=== PATIENT | female | born 1985 | race Caucasian/White ===

== ENCOUNTER 2017-12-03 09:51 | Emergency (ER) | payer BC, MEDICAID, OTHER ==
[2017-12-03 09:59] VITALS: BP 109/53
[2017-12-03] MEDS ORDERED: BACLOFEN 20 MG TABLET PO ONE (10:13)
[2017-12-03] MEDS ORDERED: KETOROLAC TROMETHAMINE 60 MG/2 ML SDV IM ONE (10:13)
--- NOTE | 2017-12-03 10:18 | ER Document Report ---
ED General - General Chief Complaint: Numbness of Arm Stated Complaint: ARM/HAND NUMBNESS Time Seen by Provider: 12/03/17 10:13 Mode of Arrival: Ambulatory Information source: Patient Notes: Chief complaint: Left shoulder pain/left arm numbness History of complain:( obtained from----patient) 32 years old female was having left shoulder pain for about 3 days with left neck pain and today while she was driving felt numbness in the left arm therefore concerned and came to the ED. Denies any chest pain palpitation or diaphoresis. Denies any fever chills cough other constitutional symptoms Onset: Gradual Duration: 3 days Severity: Mild to moderate Quality: Sharp Context: Sprain Exacerbating factor and relieving factors: Abduction of the left arm causes increase in pain REVIEW OF SYSTEMS: CONSTITUTIONAL : Denies fever, chills, or sweats. Denies recent illness. EENT: Denies eye, ear, throat, or mouth pain or symptoms. Denies nasal or sinus congestion or discharge. Denies throat, tongue, or mouth swelling or difficulty swallowing. CARDIOVASCULAR: Denies chest pain. Denies palpitations or racing or irregular heart beat. Denies ankle edema. RESPIRATORY: Denies cough, cold, or chest congestion. Denies shortness of breath, difficulty breathing, or wheezing. GASTROINTESTINAL: Denies distention. Denies nausea, vomiting, or diarrhea. Denies blood in vomitus, stools, or per rectum. Denies black, tarry stools. Denies constipation. GENITOURINARY: Denies difficulty urinating, painful urination, burning, frequency, blood in urine, or discharge. FEMALE GENITOURINARY: Denies vaginal bleeding, heavy or abnormal periods, irregular periods. Denies vaginal discharge or odor. MUSCULOSKELETAL: Denies back or neck pain or stiffness. Denies joint pain or swelling. SKIN: Denies rash, lesions or sores. HEMATOLOGIC : Denies easy bruising or bleeding. LYMPHATIC: Denies swollen, enlarged glands. NEUROLOGICAL: Denies confusion or altered mental status. Denies passing out or loss of consciousness. Denies dizziness or lightheadedness. Denies headache. Denies weakness or paralysis or loss of use of either side. Denies problems with gait or speech. Denies sensory loss, numbness, or tingling. Denies seizures. PSYCHIATRIC: Denies anxiety or stress. Denies depression, suicidal ideation, or homicidal ideation. ALL OTHER SYSTEMS REVIEWED AND NEGATIVE. PHYSICAL EXAMINATION: GENERAL: Well-appearing, well-nourished and in no acute distress. HEAD: Atraumatic, normocephalic. EYES: Pupils equal round and reactive to light, extraocular movements intact, conjunctiva are normal. ENT: Nares patent, oropharynx clear without exudates. Moist mucous membranes. NECK: Normal range of motion, supple without lymphadenopathy But on deep palpation over the left scalene muscles there was sharp tenderness were noted. During this time her left arm became more numb and tingly. Once his release it improved. LUNGS: Breath sounds clear to auscultation bilaterally and equal. No wheezes rales or rhonchi. HEART: Regular rate and rhythm without murmurs ABDOMEN: Soft, nontender, nondistended abdomen. No guarding, no rebound. No masses appreciated. Examination of genitals-deferred Musculoskeletal: Normal range of motion, no pitting or edema. No cyanosis. Range of motion for the left shoulder limited for abduction beyond 100. NEUROLOGICAL: Cranial nerves grossly intact. Normal speech, normal gait. Normal sensory, motor exams PSYCH: Normal mood, normal affect. SKIN: Warm, Dry, normal turgor, no rashes or lesions noted. Dictation was performed using [employer] voice recognition software TRAVEL OUTSIDE OF THE [place] IN LAST 30 DAYS: No - HPI Notes: Dictated - Related Data Allergies/Adverse Reactions: Penicillins Adverse Reaction (Mild, Verified 09/25/13 08:54) Unknown reaction Past Medical History - General Information source: Patient - Social History Smoking Status: Current Every Day Smoker Chew tobacco use (# tins/day): No Frequency of alcohol use: Occasional Drug Abuse: None Lives with: Family Family History: Reviewed & Not Pertinent Patient has suicidal ideation: No Patient has homicidal ideation: No - Past Medical History Cardiac Medical History: Denies: Hx Coronary Artery Disease, Hx Heart Attack, Hx Hypertension Pulmonary Medical History: Denies: Hx Asthma, Hx Bronchitis, Hx COPD, Hx Pneumonia Neurological Medical History: Denies: Hx Cerebrovascular Accident, Hx Seizures Renal/ Medical History: Denies: Hx Peritoneal Dialysis Musculoskeletal Medical History: Denies Hx Arthritis Psychiatric Medical History: Reports: Hx Depression Past Surgical History: Reports: Hx Orthopedic Surgery - Left knee surgery - Immunizations Hx Diphtheria, Pertussis, Tetanus Vaccination: Yes Review of Systems - Review of Systems Notes: Dictated Physical Exam - Vital signs Vitals: Temp Pulse Resp BP Pulse Ox 98.4 F 88 16 109/53 L 100 12/03/17 09:57 12/03/17 09:57 12/03/17 09:57 12/03/17 09:57 12/03/17 09:57 - Notes Notes: Dictated Course - Re-evaluation Re-evalutation: 12/03/17 10:16 Given anti-inflammatory and muscle relaxers - Vital Signs Vital signs: Temp Pulse Resp BP Pulse Ox 98.4 F 88 16 109/53 L 100 12/03/17 09:57 12/03/17 09:57 12/03/17 09:57 12/03/17 09:57 12/03/17 09:57 Discharge - Discharge Clinical Impression: Cervical strain, acute Qualifiers: Encounter type: initial encounter Qualified Code(s): S16.1XXA - Strain of muscle, fascia and tendon at neck level, initial encounter Condition: Fair Disposition: HOME, SELF-CARE Instructions: Sprain ([facility]) Prescriptions: Baclofen [Baclofen 10 mg Tablet] 10 mg PO TID #30 tab Naproxen [Naprosyn] 500 mg PO BID #30 tablet Referrals: HEALTH,EMPLOYEE [Primary Care Provider] - Follow up as needed
== END 2017-12-03 11:35 | disposition home or self-care (01) ==
LOC: ER 09:51
DX: S16.1XXA Strain of muscle, fascia and tendon at neck level, initial encounter (principal); R20.0 Anesthesia of skin; M25.512 Pain in left shoulder; M54.2 Cervicalgia; X58.XXXA Exposure to other specified factors, initial encounter; F17.200 Nicotine dependence, unspecified, uncomplicated
CPT/HCPCS: 99284; 96372; J1885; J3490

== ENCOUNTER 2018-09-03 22:38 | Emergency (ER) | payer OTHER ==
--- NOTE | 2018-09-03 23:42 | EKG REPORT ---
SEVERITY:- NORMAL ECG - SINUS RHYTHM : Confirmed by: Cristina Simon MD 03-Sep-2018 23:41:37
[2018-09-04] MEDS ORDERED: ASPIRIN 81 MG TABLET, CHEWABLE PO ONE (01:53)
[2018-09-04 02:26] LABS: ABSOLUTE EOSINOPHILS # (AUTO) 0.3 10^3/uL (0.0-0.6); ABSOLUTE MONOCYTES (AUTO) 0.7 10^3/uL (0.1-1.4); BASOPHILS % (AUTO) 0.5 % (0-2); EOSINOPHILS % (AUTO) 3.3 % (0-6); HEMATOCRIT 41.9 % (36.0-47.0); HEMOGLOBIN 14.2 g/dL (12.0-15.5); MEAN CORPUSCULAR VOLUME 94 fl (80-97); MONOCYTES % (AUTO) 7.3 % (3-13); PLATELET COUNT 165 10^3/uL (150-450); RED BLOOD COUNT 4.45 10^6/uL (3.72-5.28); RED CELL DISTRIBUTION WIDTH 12.9 % (11.5-14.0); SEGMENTED NEUTROPHILS % (AUTO) 66.9 % (42-78); TOTAL CELLS COUNTED % (AUTO) 100 %; WHITE BLOOD COUNT 8.9 10^3/uL (4.0-10.5)
--- NOTE | 2018-09-04 02:40 | RADIOLOGY REPORT (SQ) ---
EXAM DESCRIPTION: XR CHEST 1 VIEW COMPLETED DATE/TME: 09/04/2018 01:53 CLINICAL HISTORY: 33 years, Female, chest pain COMPARISON: None. NUMBER OF VIEWS: 1 TECHNIQUE: Portable chest LIMITATIONS: None. FINDINGS: Heart size is normal. Lungs clear. No pneumothorax IMPRESSION: Negative chest copyright 2010 [employer]- All Rights Reserved
[2018-09-04 02:48] LABS: ALANINE AMINOTRANSFERASE 18 U/L (9-52); ALBUMIN 4.7 g/dL (3.5-5.0); ALKALINE PHOSPHATASE 44 U/L (38-126); ANION GAP 12 (5-19); ASPARTATE AMINO TRANSFERASE 17 U/L (14-36); BILIRUBIN,DIRECT 0.3 mg/dL (0.0-0.4); BILIRUBIN,TOTAL 0.7 mg/dL (0.2-1.3); BLOOD UREA NITROGEN 13 mg/dL (7-20); CALCIUM 9.5 mg/dL (8.4-10.2); CARBON DIOXIDE 26 mmol/L (22-30); CHLORIDE 104 mmol/L (98-107); CREATINE KINASE 27 U/L (30-135); GLUCOSE 103 mg/dL (75-110); POTASSIUM 3.9 mmol/L (3.6-5.0); SODIUM 142.3 mmol/L (137-145); TOTAL PROTEIN 7.7 g/dL (6.3-8.2)
[2018-09-04 02:59] LABS: CREATINE KINASE MB 0.25 ng/mL (<4.55); TROPONIN I < 0.012 ng/mL
[2018-09-04 05:36] VITALS: BP 101/66
--- NOTE | 2018-09-04 07:30 | ER Document Report ---
Entered by VINAY VASQUEZ SCRIBE 09/04/18 0201 Acting as scribe for:ASHWINI TOMPKINS DO ED General - General Chief Complaint: Chest Pain Stated Complaint: CHEST PAIN Time Seen by Provider: 09/04/18 01:19 Mode of Arrival: Ambulatory Information source: Patient Notes: Patient is a 33 year old female with anxiety and depression presents to the emergency department complaining of chest pain with associated nausea and dizziness. Patient states the chest pain was onset 1 week ago which is described as sharpness and tightness that worsened last night and has been constant since early this morning. She states she has anxiety and has been working in the heat and initially attributed her chest pain to this. Patient states taking her hydroxyzine with no relief. She states that her chest pain is exacerbated with breathing. She denies any coughing, trouble breathing or fevers. TRAVEL OUTSIDE OF THE [place] IN LAST 30 DAYS: No - Related Data Allergies/Adverse Reactions: Penicillins Adverse Reaction (Mild, Verified 09/25/13 08:54) Unknown reaction Past Medical History - General Information source: Patient - Social History Smoking Status: Current Every Day Smoker Cigarette use (# per day): Yes Chew tobacco use (# tins/day): No Smoking Education Provided: No Frequency of alcohol use: Occasional Drug Abuse: None Family History: Reviewed & Not Pertinent Psychiatric Medical History: Reports: Hx Anxiety, Hx Depression Past Surgical History: Reports: Hx Orthopedic Surgery - Left knee surgery - Immunizations Hx Diphtheria, Pertussis, Tetanus Vaccination: Yes Review of Systems - Review of Systems Constitutional: No symptoms reported EENT: No symptoms reported Cardiovascular: See HPI, Chest pain, Dizziness Respiratory: No symptoms reported Gastrointestinal: See HPI, Nausea Genitourinary: No symptoms reported Female Genitourinary: No symptoms reported Musculoskeletal: No symptoms reported Skin: No symptoms reported Hematologic/Lymphatic: No symptoms reported Neurological/Psychological: No symptoms reported -: Yes All other systems reviewed and negative Physical Exam - Vital signs Vitals: Temp Pulse Resp BP Pulse Ox 98.0 F 65 16 101/66 97 09/03/18 23:22 09/03/18 23:22 09/03/18 23:22 09/03/18 23:22 09/03/18 23:22 - Notes Notes: GENERAL: Alert, interacts well. No acute distress. HEAD: Normocephalic, atraumatic. EYES: Pupils equal, round, and reactive to light. Extraocular movements intact. ENT: Oral mucosa moist, tongue midline. NECK: Full range of motion. Supple. Trachea midline. LUNGS: Clear to auscultation bilaterally, no wheezes, rales, or rhonchi. No respiratory distress. HEART: Regular rate and rhythm. No murmurs, gallops, or rubs. ABDOMEN: Soft, non-tender. Non-distended. Bowel sounds present in all 4 quadrants. No guarding, rigidity, or rebound. EXTREMITIES: Moves all 4 extremities spontaneously. NEUROLOGICAL: Alert and oriented x3. Normal speech. PSYCH: Normal affect, normal mood. SKIN: Warm, dry, normal turgor. No rashes or lesions noted. Course - Re-evaluation Re-evalutation: 09/04/18 03:50 CBC unremarkable, CMP unremarkable, cardiac enzymes negative and chest pain is been constant since Wednesday morning, chest x-ray is unremarkable, EKG is non ischemic, d-dimer is undetectable. 09/04/18 03:52 test will be ordered. If it is negative patient will be discharged home. I do not see any life-threatening etiology for her pain, low suspicion for ischemic cardiac disease as her cardiac enzymes are negative after constant pain for more than 12 hours, no evidence of PE, pneumothorax or pneumonia. Recommend that patient take ibuprofen 800 mg every 8 hours as needed for pain, follow-up with primary care physician as an outpatient. Discussed with patient that this may be pleurisy which will be treated with the ibuprofen. 09/04/18 05:11 test is negative. - Vital Signs Vital signs: Temp Pulse Resp BP Pulse Ox 98.0 F 65 14 101/66 98 09/03/18 23:22 09/03/18 23:22 09/04/18 05:33 09/04/18 05:00 09/04/18 05:33 - Laboratory Result Diagrams: 09/04/18 02:14 09/04/18 02:14 Laboratory results interpreted by me: 09/04/18 02:14 Creatine Kinase 27 L - EKG Interpretation by Me Additional EKG results interpreted by me: 09/04/18 05:12 EKG shows sinus rhythm at a rate of 77, normal axis, normal intervals, no ST segment elevations or depressions, no T wave inversions per my interpretation. Discharge - Discharge Clinical Impression: Chest pain of uncertain etiology Condition: Stable Disposition: HOME, SELF-CARE Instructions: Chest Pain of Unclear Cause ([facility]) Forms: Return to Work I personally performed the services described in the documentation, reviewed and edited the documentation which was dictated to the scribe in my presence, and it accurately records my words and actions.
== END 2018-09-04 05:45 | disposition home or self-care (01) ==
LOC: ER 22:38
DX: R07.9 Chest pain, unspecified (principal); R42 Dizziness and giddiness; F41.9 Anxiety disorder, unspecified; R11.0 Nausea; F17.210 Nicotine dependence, cigarettes, uncomplicated; Z88.0 Allergy status to penicillin
CPT/HCPCS: 36415; 71045; 80053; 82550; 82553; 84484; 84703; 85025; 85379; 93005; 93010; 99284

== ENCOUNTER → 2019-05-19 | Outpatient (CLI) | payer OTHER ==
--- NOTE | 2019-05-19 13:40 | RADIOLOGY REPORT (SQ) ---
EXAM DESCRIPTION: CHEST PA/LATERAL COMPLETED DATE/TIME: 05/19/2019 11:42 am REASON FOR STUDY: COUGH COMPARISON: 2019 TECHNIQUE: Frontal and lateral radiographic views of the chest acquired. NUMBER OF VIEWS: Two view. LIMITATIONS: None. FINDINGS: LUNGS AND PLEURA: No opacities, masses or pneumothorax. No pleural effusion. MEDIASTINUM AND HILAR STRUCTURES: No masses or contour abnormalities. HEART AND VASCULAR STRUCTURES: Heart normal size. No evidence for failure. BONES: No acute findings. HARDWARE: None in the chest. OTHER: No other significant finding. IMPRESSION: NO SIGNIFICANT RADIOGRAPHIC FINDING IN THE CHEST. TECHNICAL DOCUMENTATION: JOB ID: [id number] 2010 [employer]- All Rights Reserved Reading location - IP/workstation name: [email or web address]
== END ==
LOC: OD 11:06
PROVIDERS: ATTEND Nurse Practitioner Family
DX: R05 Cough (principal)
CPT/HCPCS: 71046

== ENCOUNTER 2020-02-19 23:34 | Emergency (ER) | payer OTHER ==
--- NOTE | 2020-02-20 00:31 | ER Document Report ---
ED Medical Screen (RME) - General Chief Complaint: Flu Symptoms Stated Complaint: CHILLS/FEVER/BODY FEELS HEAVY/EXPOSURE TO COVID Time Seen by Provider: 02/20/20 00:28 Primary Care Provider: KAREN IRBY FNP-C [Primary Care Provider] - Follow up as needed Notes: HPI: 35-year-old female presenting for flulike symptoms today. Chills but no definite fever. Has had runny nose no sore throat very mild cough but patient states that she vapes. Nephew had Covid 1-1/2 weeks ago. Patient was around him for approximately a week. Did have a Covid test 1-1/2 weeks ago that was negative. No chest pain. No shortness of breath PHYSICAL EXAMINATION: Mild rhinitis is noted. Phonation is normal. Not tachycardic I have greeted and performed a rapid initial assessment of this patient. A comprehensive ED assessment and evaluation of the patient, analysis of test results and completion of medical decision making process will be conducted by an additional ED providers. TRAVEL OUTSIDE OF THE [place] IN LAST 30 DAYS: No - Related Data Allergies/Adverse Reactions: Penicillins Adverse Reaction (Mild, Verified 02/20/20 00:23) Unknown reaction Past Medical History - Social History Frequency of alcohol use: Social Drug Abuse: None - Past Medical History Cardiac Medical History: Denies: Hx Coronary Artery Disease, Hx Heart Attack, Hx Hypertension Pulmonary Medical History: Denies: Hx Asthma, Hx Bronchitis, Hx COPD, Hx Pneumonia Neurological Medical History: Denies: Hx Cerebrovascular Accident, Hx Seizures Renal/ Medical History: Denies: Hx Peritoneal Dialysis Musculoskeltal Medical History: Denies Hx Arthritis Psychiatric Medical History: Reports: Hx Anxiety, Hx Depression Past Surgical History: Reports: Hx Orthopedic Surgery - Left knee surgery - Immunizations Hx Diphtheria, Pertussis, Tetanus Vaccination: Yes Physical Exam - Vital signs Vitals: Temp Pulse Resp BP Pulse Ox 97.4 F 73 18 101/52 L 100 02/20/20 00:16 02/20/20 00:16 02/20/20 00:16 02/20/20 00:16 02/20/20 00:16 Course - Vital Signs Vital signs: Temp Pulse Resp BP Pulse Ox 97.4 F 73 18 101/52 L 100 02/20/20 00:16 02/20/20 00:16 02/20/20 00:16 02/20/20 00:16 02/20/20 00:16 Doctor's Discharge - Discharge Referrals: KAREN IRBY, EQUIPMENT HIRE MANAGER-C [Primary Care Provider] - Follow up as needed
[2020-02-20 03:58] LABS: A TYPE INFLUENZA AG NEGATIVE (NEGATIVE); B INFLUENZA AG NEGATIVE (NEGATIVE)
[2020-02-20] MEDS ORDERED: NORMAL SALINE 1000 ML 1,000 ML IV ONE (05:32)
[2020-02-20] MEDS ORDERED: ONDANSETRON HCL INJ/PF 4 MG/2 ML SDV IV ONE (05:32)
[2020-02-20] MEDS ORDERED: KETOROLAC TROMETHAMINE INJ/PF 30 MG/1 ML SDV IV ONE (05:32)
[2020-02-20 05:56] LABS: ABSOLUTE EOSINOPHILS # (AUTO) 0.1 10^3/uL (0.0-0.6); ABSOLUTE LYMPHOCYTES (AUTO) 1.6 10^3/uL (0.5-4.7); ABSOLUTE MONOCYTES (AUTO) 0.5 10^3/uL (0.1-1.4); ABSOLUTE NEUT (AUTO) 5.3 10^3/uL (1.7-8.2); BASOPHILS % (AUTO) 0.6 % (0-2); EOSINOPHILS % (AUTO) 1.8 % (0-6); HEMATOCRIT 40.1 % (36.0-47.0); HEMOGLOBIN 13.9 g/dL (12.0-15.5); LYMPHOCYTES % (AUTO) 21.2 % (13-45); MEAN CORPUSCULAR HEMOGLOBIN 32.1 pg (27.0-33.4); MEAN CORPUSCULAR HGB CONC 34.6 g/dL (32.0-36.0); MEAN CORPUSCULAR VOLUME 93 fl (80-97); MONOCYTES % (AUTO) 6.9 % (3-13); PLATELET COUNT 169 10^3/uL (150-450); RED BLOOD COUNT 4.33 10^6/uL (3.72-5.28); SEGMENTED NEUTROPHILS % (AUTO) 69.5 % (42-78); TOTAL CELLS COUNTED % (AUTO) 100 %; WHITE BLOOD COUNT 7.7 10^3/uL (4.0-10.5)
[2020-02-20] MEDS ORDERED: DIPHENHYDRAMINE HCL 50 MG/ML VIAL IV ONE (05:59)
--- NOTE | 2020-02-20 05:59 | ER Document Report ---
ED General - General Chief Complaint: Flu Symptoms Stated Complaint: CHILLS/FEVER/BODY FEELS HEAVY/EXPOSURE TO COVID Time Seen by Provider: 02/20/20 00:28 Primary Care Provider: KAREN IRBY FNP-C [Primary Care Provider] - Follow up as needed Notes: Patient is a 35-year-old female who comes to the emergency department for chief complaint of sick symptoms for the past 2 to 3 days, she reports weakness, headaches, generally not feeling well, worsening mid to lower back pain on both sides, minimal cough. She states that yesterday she developed nausea and vomited several times, today she states she had chills and a fever at home. She denies abdominal pain, chest pain, difficulty breathing, sore throat, conge stion, sick exposure, dysuria, vaginal bleeding or discharge. She had a negative COVID-19 test about 1.5 weeks ago after she was exposed to someone who was positive. She denies . She denies any daily prescribed medications. TRAVEL OUTSIDE OF THE [place] IN LAST 30 DAYS: No - Related Data Allergies/Adverse Reactions: Penicillins Adverse Reaction (Mild, Verified 02/20/20 00:23) Unknown reaction Past Medical History - General Information source: Patient - Social History Smoking Status: Never Smoker Frequency of alcohol use: Social Drug Abuse: None Lives with: Family Family History: Reviewed & Not Pertinent - Past Medical History Cardiac Medical History: Denies: Hx Coronary Artery Disease, Hx Heart Attack, Hx Hypertension Pulmonary Medical History: Denies: Hx Asthma, Hx Bronchitis, Hx COPD, Hx Pneumonia Neurological Medical History: Denies: Hx Cerebrovascular Accident, Hx Seizures Renal/ Medical History: Denies: Hx Peritoneal Dialysis Musculoskeletal Medical History: Denies Hx Arthritis Psychiatric Medical History: Reports: Hx Anxiety, Hx Depression Past Surgical History: Reports: Hx Orthopedic Surgery - Left knee surgery - Immunizations Hx Diphtheria, Pertussis, Tetanus Vaccination: Yes Review of Systems - Review of Systems Constitutional: See HPI EENT: No symptoms reported Cardiovascular: No symptoms reported Respiratory: See HPI Gastrointestinal: No symptoms reported Genitourinary: See HPI Female Genitourinary: No symptoms reported Musculoskeletal: See HPI Skin: No symptoms reported Hematologic/Lymphatic: No symptoms reported Neurological/Psychological: No symptoms reported Physical Exam - Vital signs Vitals: Temp Pulse Resp BP Pulse Ox 97.4 F 73 18 101/52 L 100 02/20/20 00:16 02/20/20 00:16 02/20/20 00:16 02/20/20 00:16 02/20/20 00:16 - Notes Notes: GENERAL: Patient slightly disheveled and slightly unwell appearing although she does not appear to be in distress HEAD: Normocephalic, atraumatic. EYES: Pupils equal, round, and reactive to light. Extraocular movements intact. ENT: Oral mucosa moist, tongue midline. Oropharynx unremarkable. Airway patent. Nares patent, sinuses non-tender, ear canals unremarkable, TM's intact. NECK: Full range of motion. Supple. Trachea midline. No lymphadenopathy. No nuchal rigidity LUNGS: Clear to auscultation bilaterally, no wheezes, rales, or rhonchi. No re spiratory distress. Non-tender chest wall. HEART: Regular rate and rhythm. No murmur ABDOMEN: There is some suprapubic tenderness on exam but remaining abdomen unremarkable, no guarding rigidity, or distention. EXTREMITIES: Moves all 4 extremities spontaneously. No edema, normal radial and dorsalis pedis pulses bilaterally. No cyanosis. BACK: There is some CVA tenderness bilaterally although this is not severe. No signs of trauma. No cervical, thoracic, lumbar midline tenderness. No saddle an esthesia, normal distal neurovascular exam. Moves all extremities in full range of motion. NEUROLOGICAL: Alert and oriented x3. Normal speech. Cranial nerves II through XII grossly intact. Strength 5/5 in all extremities. PSYCH: Normal affect, normal mood. SKIN: Warm, dry, normal turgor. No rashes or lesions noted. Course - Re-evaluation Re-evalutation: Patient appears mildly uncomfortable and is slightly ill-appearing. However abdomen is soft except for some suprapubic tenderness, remaining exam is unremarkable except she appears to have some bilateral CVA tenderness. Urine is contaminated but because of her CVA tenderness, large leukocytes, 3+ bacteria, I discussed with patient decision was made to treat her for UTI. I have low suspicion of obstructing ureterolithiasis based on her presentation and bilateral symptoms however. Chest x-ray unremarkable. Influenza negative. CBC and chemistry unremarkable. test negative. On reevaluation after treatment headache has completely resolved. No nuchal rigidity. No additional complaints. Patient is requesting to be tested for COVID-19 and she was provided with this. I discussed follow-up and return precautions. Patient states understanding and agreement. Stable at time of discharge. - Vital Signs Vital signs: Temp Pulse Resp BP Pulse Ox 97.4 F 73 12 101/71 98 02/20/20 00:16 02/20/20 00:16 02/20/20 07:00 02/20/20 07:00 02/20/20 05:32 - Laboratory Result Diagrams: 02/20/20 05:20 02/20/20 05:20 Laboratory results interpreted by me: 02/20/20 05:15 Ur Leukocyte Esterase LARGE H Discharge - Discharge Clinical Impression: Flank pain, Body aches, Person under investigation for COVID-19 Headache Qualifiers: Headache type: unspecified Headache chronicity pattern: acute headache Intractability: not intractable Qualified Code(s): R51.9 - Headache, unspecified Condition: Stable Disposition: HOME, SELF-CARE Instructions: COVID-19 Guidance for Persons Under Investigation Additional Instructions: Your chest x-ray is normal, your lab tests are normal, we are treating you for a urinary tract infection. Please quarantine while you are awaiting your COVID-19 test, you will be contacted with results. Rest, take Tylenol and ibuprofen if needed for headache and body aches, you can combine Phenergan and Benadryl along with these to treat headaches if needed. Follow-up with primary care for additional management. Return if you are worsening including spiking fevers, vomiting, returned/severe headache, or any other concerning or worsening symptoms. Prescriptions: Cephalexin Monohydrate [Keflex 500 mg Capsule] 500 mg PO BID 7 Days #14 capsule Promethazine HCl [Phenergan 25 mg Tablet] 25 mg PO Q6H PRN #15 tablet PRN Reason: Forms: Return to Work Referrals: KAREN IRBY FNP-C [Primary Care Provider] - Follow up as needed
[2020-02-20 06:01] LABS: APPEARANCE,URINE SLIGHTLY-CLOUDY; BILIRUBIN,URINE NEGATIVE (NEGATIVE); COLOR,URINE YELLOW; GLUCOSE, URINE NEGATIVE (NEGATIVE); KETONES,URINE NEGATIVE (NEGATIVE); LEUKOCYTE ESTERASE,URINE LARGE (NEGATIVE); NITRITE,URINE NEGATIVE (NEGATIVE); PROTEIN,URINE NEGATIVE (NEGATIVE); URINE SPECIFIC GRAVITY 1.011; UROBILINOGEN,URINE NEGATIVE mg/dL (<2.0)
--- NOTE | 2020-02-20 06:16 | RADIOLOGY REPORT (SQ) ---
CHEST X-RAY 1 VIEW on 02/20/2020 at 5:46 AM CLINICAL INDICATION: Fever, weakness COMPARISON: 05/19/2019 FINDINGS: The lungs are clear. Cardiac, hilar and mediastinal contours are within normal limits. Pulmonary vascularity is within normal limits. No bony abnormality is noted. IMPRESSION: No active disease.
[2020-02-20 06:20] LABS: ALBUMIN 4.8 g/dL (3.5-5.0); ALKALINE PHOSPHATASE 42 U/L (38-126); ANION GAP 10 (5-19); ASPARTATE AMINO TRANSFERASE 15 U/L (14-36); BILIRUBIN,TOTAL 0.9 mg/dL (0.2-1.3); BLOOD UREA NITROGEN 10 mg/dL (7-20); CALCIUM 9.9 mg/dL (8.4-10.2); CARBON DIOXIDE 26 mmol/L (22-30); CHLORIDE 104 mmol/L (98-107); GLUCOSE 91 mg/dL (75-110); POTASSIUM 4.2 mmol/L (3.6-5.0); TOTAL PROTEIN 7.7 g/dL (6.3-8.2)
[2020-02-20] MEDS ORDERED: CEPHALEXIN 500 MG CAPSULE PO ONE (06:51)
[2020-02-20 07:11] VITALS: BP 101/71
== END 2020-02-20 07:22 | disposition home or self-care (01) ==
LOC: ER 23:34
DX: R51.9 Headache, unspecified (principal); R10.9 Unspecified abdominal pain; M79.10 Myalgia, unspecified site; R50.9 Fever, unspecified; R53.1 Weakness; M54.5 Low back pain; R05 Cough; R11.0 Nausea; Z20.828 Contact with and (suspected) exposure to other viral communicable diseases; Z88.0 Allergy status to penicillin
CPT/HCPCS: 99284; 96361; 96374; 96375; 36415; 85025; 87635; 81025; 80053; 81001; 87804; 71045; J1200; J1885; J2405; J7030; C9803